=== PATIENT | male | born 1975 | race Caucasian/White ===

== ENCOUNTER 2018-10-23 16:57 | Emergency (ER) | payer MEDICARE, MEDICAID ==
[~2018-10-23] VITALS: Ht 190.5 cm; Wt 78.9 kg
[~2018-10-23 16:57] MED LIST: ALBU8HFA PO; PRED50TA PO
--- NOTE | 2018-10-23 17:50 | NUR ---
BACK FROM CT
[2018-10-23 18:37] VITALS: BP 137/98
[2018-10-23] MEDS ORDERED: LIDOcaine 1% w/epiNEPHrine 1:200,000 30ml vial IJ ONE (18:40)
[2018-10-23] MEDS ORDERED: LIDOcaine 1.5% w/epinephrine 1:200,000 5ml ampul IJ ONE (18:40)
== END 2018-10-23 20:18 | disposition home or self-care (01) ==
LOC: ER 16:58
DX: S01.01XA Laceration without foreign body of scalp, initial encounter (principal); J45.909 Unspecified asthma, uncomplicated; G89.29 Other chronic pain; Z88.6 Allergy status to analgesic agent; Z91.010 Allergy to peanuts; Z79.899 Other long term (current) drug therapy; W22.8XXA Striking against or struck by other objects, initial encounter; Y93.89 Activity, other specified; Y92.89 Other specified places as the place of occurrence of the external cause; Y99.8 Other external cause status
CPT/HCPCS: 12002; 70450; 99284; J3490

== ENCOUNTER 2020-08-11 11:56 | Emergency (ER) | payer MEDICARE, MEDICAID ==
[~2020-08-11] VITALS: Ht 190.5 cm; Wt 84.0 kg
[2020-08-11 12:40] LABS: BASOPHILS # (AUTO) 0.1 X10'3 (0-0.2); BASOPHILS % (AUTO) 1.1 % (0-1); EOSINOPHILS # (AUTO) 0.1 X10'3 (0-0.9); EOSINOPHILS % (AUTO) 1.3 % (0-6); HEMATOCRIT 47.1 % (42.0-52.0); HEMOGLOBIN 15.5 g/dl (14.0-17.9); LYMPHOCYTES # (AUTO) 1.7 X10'3 (1.1-4.8); LYMPHOCYTES % (AUTO) 26.5 % (21-51); MEAN CORPUSCULAR HEMOGLOBIN 28.9 PG (27.0-31.0); MEAN CORPUSCULAR VOLUME 87.5 FL (78-98); MEAN PLATELET VOLUME 7.8 FL (7.4-10.4); MONOCYTES # (AUTO) 0.6 X10'3 (0-0.9); MONOCYTES % (AUTO) 8.9 % (2-12); NEUTROPHILS # (AUTO) 4.1 X10'3 (1.8-7.7); NEUTROPHILS % (AUTO) 62.2 % (42-75); PLATELET COUNT 285 X10'3 (140-440); RED BLOOD COUNT 5.38 X10'6 (4.70-6.10); RED CELL DISTRIBUTION WIDTH 14.3 % (11.5-14.5); WHITE BLOOD COUNT 6.6 X10'3 (4.5-11.0)
[2020-08-11 12:53] LABS: ALANINE AMINOTRANSFERASE 29 U/L (12-78); ALBUMIN 4.1 G/DL (3.4-5.0); ALBUMIN/GLOBULIN RATIO 1.3 (1.1-1.5); ALKALINE PHOSPHATASE 51 IU/L (46-116); ANION GAP 9 (8-16); ASPARTATE AMINO TRANSFERASE 17 U/L (10-37); BILIRUBIN,TOTAL 0.8 MG/DL (0.1-1.0); BLOOD UREA NITROGEN 13 MG/DL (7-18); BUN/CREATININE RATIO 11.8 (5.4-32.0); CALCIUM 9.1 MG/DL (8.5-10.1); CHLORIDE 104 MMOL/L (99-107); GLUCOSE 104 MG/DL (70-104); POTASSIUM 4.4 MMOL/L (3.5-5.1); SODIUM 139 MMOL/L (135-145); TOTAL CARBON DIOXIDE 26.3 MMOL/L (24-32); TOTAL PROTEIN 7.2 G/DL (6.4-8.2); eGFR 73 ML/MIN
[2020-08-11] MEDS ORDERED: ACET-2119 PO (15:07)
[2020-08-11 15:27] VITALS: BP 120/81
== END 2020-08-11 15:29 | disposition home or self-care (01) ==
LOC: ER 11:56
DX: R07.89 Other chest pain (principal); J45.909 Unspecified asthma, uncomplicated; G89.29 Other chronic pain; Z72.89 Other problems related to lifestyle; Z88.6 Allergy status to analgesic agent; Z88.8 Allergy status to other drugs, medicaments and biological substances; Z79.899 Other long term (current) drug therapy
CPT/HCPCS: 36415; 71045; 80053; 83880; 84484; 85025; 93005; 99285

== ENCOUNTER 2023-08-12 22:00 | Emergency (ER) | payer MEDICARE, MEDICAID ==
[~2023-08-12] VITALS: Ht 188 cm; Wt 90.9 kg
[~2023-08-12 22:00] MED LIST changes: +ACET-2119 PO
[2023-08-12 22:06] VITALS: BP 101/62; PULSE 71; RESP 16; TEMP 97.7; O2SAT 98
--- NOTE | 2023-08-13 01:54 | NUR ---
PT STATES HE WAS LEAVING DUE TO EXCESSIVE WAIT TIMES
== END 2023-08-13 01:55 | disposition left against medical advice (07) ==
LOC: ER 22:01
DX: L02.419 Cutaneous abscess of limb, unspecified (principal); Z53.21 Procedure and treatment not carried out due to patient leaving prior to being seen by health care provider
CPT/HCPCS: 99281

== ENCOUNTER 2023-10-25 17:48 | Emergency (ER) | payer MEDICARE, MEDICAID ==
[~2023-10-25] VITALS: Ht 188 cm; Wt 87.7 kg
[2023-10-25 18:43] LABS: BASOPHILS # (AUTO) 0.1 X10'3 (0-0.2); BASOPHILS % (AUTO) 0.8 % (0-1); EOSINOPHILS % (AUTO) 0.2 % (0-6); HEMATOCRIT 43.4 % (42.0-52.0); HEMOGLOBIN 14.7 g/dl (14.0-17.9); LYMPHOCYTES # (AUTO) 1.8 X10'3 (1.1-4.8); MEAN CORPUSCULAR HEMOGLOBIN 29.2 PG (27.0-31.0); MEAN CORPUSCULAR HGB CONC 33.8 g/dL (33.0-36.5); MEAN CORPUSCULAR VOLUME 86.3 FL (78-98); MEAN PLATELET VOLUME 7.6 FL (7.4-10.4); MONOCYTES # (AUTO) 0.8 X10'3 (0-0.9); MONOCYTES % (AUTO) 12.3 % (2-12); NEUTROPHILS # (AUTO) 3.6 X10'3 (1.8-7.7); NEUTROPHILS % (AUTO) 57.7 % (42-75); PLATELET COUNT 308 X10'3 (140-440); RED BLOOD COUNT 5.03 X10'6 (4.70-6.10); RED CELL DISTRIBUTION WIDTH 13.6 % (11.5-14.5); WHITE BLOOD COUNT 6.3 X10'3 (4.5-11.0)
[2023-10-25 19:20] LABS: ALANINE AMINOTRANSFERASE 24 U/L (12-78); ALBUMIN 3.8 G/DL (3.4-5.0); ALBUMIN/GLOBULIN RATIO 1.2 (1.1-1.5); ALKALINE PHOSPHATASE 50 IU/L (46-116); ANION GAP 11 (8-16); ASPARTATE AMINO TRANSFERASE 15 U/L (10-37); BILIRUBIN,TOTAL 0.6 MG/DL (0.1-1.0); BLOOD UREA NITROGEN 11 MG/DL (7-18); BUN/CREATININE RATIO 9.3 (10.0-20.0); CALCIUM 8.9 MG/DL (8.5-10.1); CHLORIDE 106 MMOL/L (99-107); CREATININE 1.18 MG/DL (0.60-1.10); GLUCOSE 90 MG/DL (70-104); LIPASE 38 U/L (16-77); POTASSIUM 4.3 MMOL/L (3.5-5.1); SODIUM 142 MMOL/L (135-145); TOTAL CARBON DIOXIDE 25.2 MMOL/L (24-32); TOTAL PROTEIN 6.9 G/DL (6.4-8.2); eCRCL 91 ML/MIN; eGFR 66 ML/MIN
[2023-10-25 19:48] LABS: BILIRUBIN,URINE NEGATIVE (Neg); CLARITY,URINE CLEAR (Clear); COLOR,URINE YELLOW (Yellow); GLUCOSE, URINE NEGATIVE (Neg); KETONES,URINE NEGATIVE (Neg); LEUKOCYTE ESTERASE ,URINE NEGATIVE (Neg); NITRITES, URINE NEGATIVE (Neg); OCCULT BLOOD,URINE NEGATIVE (Neg); PROTEIN,URINE NEGATIVE (Neg); UROBILINOGEN,URINE >=8.0 E.U/dL (0.2-1.0)
[2023-10-25] MEDS ORDERED: iohexol 300mg/ml 100ml inj. ONE (19:54)
[2023-10-25] MEDS ORDERED: HYDROmorphone 1 mg/ml syringe IV ONE (19:55)
[2023-10-25] MEDS ORDERED: ondansetron/PF 4mg/2ml inj IV ONE (19:55)
[2023-10-25 20:01] LABS: UA COLLECTION TYPE CLN CATCH MIDSTREAM
[2023-10-25] MEDS ORDERED: CefTRIAXone 500MG IM Kit w/LIDOcaine IM STA (20:58)
[2023-10-25] MEDS ORDERED: DOXY-356 PO (21:02)
[2023-10-25] MEDS ORDERED: HYDR-3965 PO (21:02)
[2023-10-25 21:21] VITALS: BP 137/77; PULSE 67; RESP 12; TEMP 98; O2SAT 98
== END 2023-10-25 21:22 | disposition home or self-care (01) ==
LOC: ER 17:49
DX: N45.1 Epididymitis (principal); J45.909 Unspecified asthma, uncomplicated; G89.29 Other chronic pain; Z85.9 Personal history of malignant neoplasm, unspecified; Z72.89 Other problems related to lifestyle; Z88.8 Allergy status to other drugs, medicaments and biological substances; Z91.010 Allergy to peanuts; Z79.899 Other long term (current) drug therapy; Z79.2 Long term (current) use of antibiotics
CPT/HCPCS: 36415; 74178; 80053; 81003; 83690; 85025; 96372; 96374; 96375; 99285; J0696; J1170; J2405; J3490; Q9967

== ENCOUNTER 2024-05-26 19:05 | Emergency (ER) | payer MEDICARE, MEDICAID ==
[~2024-05-26] VITALS: Ht 190.5 cm; Wt 8.6 kg
[2024-05-26] MEDS ORDERED: SULF1TAB49 PO (19:35)
[2024-05-26] MEDS: CefTRIAXone 1000mg IM Kit (w/lidocaine diluent) IM ONE (20:23)
[2024-05-26 21:00] VITALS: BP 116/82; PULSE 62; RESP 14; TEMP 98.3; O2SAT 97
== END 2024-05-26 21:05 | disposition home or self-care (01) ==
LOC: ER 19:05
DX: L02.413 Cutaneous abscess of right upper limb (principal); J45.909 Unspecified asthma, uncomplicated; G89.29 Other chronic pain; M54.9 Dorsalgia, unspecified; Z85.89 Personal history of malignant neoplasm of other organs and systems; Z98.890 Other specified postprocedural states; Z72.89 Other problems related to lifestyle; Z88.8 Allergy status to other drugs, medicaments and biological substances; Z91.010 Allergy to peanuts; Z79.1 Long term (current) use of non-steroidal anti-inflammatories (NSAID); Z79.52 Long term (current) use of systemic steroids
CPT/HCPCS: 87070; 87077; 87186; 96372; 99283; J0696

== ENCOUNTER 2025-09-22 17:08 | Emergency (ER) | payer MEDICARE, MEDICAID ==
[~2025-09-22] VITALS: Ht 188 cm; Wt 99.3 kg
[~2025-09-22 17:08] MED LIST changes: -ACET-2119 PO; +ACET-3174 PO; +DOXY-243 PO; -PRED50TA PO
[2025-09-22 17:21] VITALS: TEMP 98.6
--- NOTE | 2025-09-22 17:34 | Physician Documentation ---
History of Present Illness ~ Chief Complaint: Cold, cough & congestion Stated Complaint: PNUEMONIA Time Seen by MD: 17:28 Primary Medical Doctor: [facility] Source: patient Mode of Arrival: POV Exam Limitations: no limitations HPI 50-year-old male concerned for pneumonia as he is having a productive cough shortness of breath and fever for proximally 2 weeks. Patient also has history of asthma denies COPD was a smoker but has not smoked for 13 years. No other significant medical history. Denies chest pain Medication Reconciliation Allergies: Coded Allergies: aspirin (Verified Allergy, Mild, NOT SUPPOSE TO TAKE IT DUE TO ONE KIDNEY, 09/22/25) peanut (Unverified Allergy, Unknown, 09/22/25) Uncoded Allergies: NUTS (Allergy, Unknown, 04/16/25) Scheduled Acetaminophen (Tylenol 8 Hour), 1 TAB PO Q8H Doxycycline Hyclate (Doxycycline Hyclate), 100 MG PO BID Scheduled PRN albuterol inhaler (Pro-Air Inhaler), 1-2 PUFFS PO Q4H PRN for SOB or wheezing, (Reported) Past Medical History Past Medical History: Asthma, Chronic Back Pain, *CANCER* Past Surgical History: other Other Past Surgical History: kidney removal Alcohol Use: Occasionally Drug Use: none Lives with: Family Lives In: Home Occupation: employed Review of Systems All Other Systems at this time: Reviewed and Negative Respiratory: Reports: see HPI Physical Exam Vital Signs: RN Vital Signs have been reviewed: Yes, Temperature: 98.6, Source: Temporal, Heart Rate: 82, Respiratory Rate: 16, BP: 120/82, Pulse Oximetry: 97, Weight: 99.300 Oxygen Flow Rate: 0 Physical Exam General: Alert, no apparent distress. HEENT: PERRL, EOMI, no injection, moist mucous membranes. Neck: Full range of motion. Respiratory: Posterior lower lobes coarse lung sounds diminished in the bases no respiratory distress. Speaking in full sentences Chest: No accessory muscle use. Cardiovascular: Regular rate and rhythm, no murmurs. Extremities: Normal range of motion, no deformity. Neurologic: Oriented x4. Psychiatric: Normal mood and affect. Skin: Normal color, warm and dry. No edema, no ecchymosis. Progress Results/Orders Results/Orders Orders - MARITZA SANDERS [employer] Chest,Two Views (09/22/25 17:35) Completed Orders - MARITZA SANDERS [employer] Chest,Two Views (09/22/25 17:35) Vital Signs 09/22/25 17:21 Temp 98.6 Pulse 82 Resp 16 B/P (MAP) 120/82 Pulse Ox 97 O2 Flow Rate 0 Laboratory Tests Test 09/22/25 17:34 White Blood Count 8.9 Red Blood Count 4.96 Hemoglobin 14.8 Hematocrit 43.4 Mean Corpuscular Volume 87.6 Mean Corpuscular Hemoglobin 29.8 Mean Corpuscular Hemoglobin Concent 34.0 Red Cell Distribution Width 14.2 Platelet Count 273 Mean Platelet Volume 8.2 Neutrophils (%) (Auto) 59.9 Lymphocytes (%) (Auto) 28.1 Monocytes (%) (Auto) 11.1 Eosinophils (%) (Auto) 0.5 Basophils (%) (Auto) 0.4 Neutrophils # (Auto) 5.3 Lymphocytes # (Auto) 2.5 Monocytes # (Auto) 1.0 H Eosinophils # (Auto) 0.0 Basophils # (Auto) 0.0 CBC Comment Chemistry Comments EKG/XRAY/CT/US/VASC/MRI Chest X-Ray : Additional Comments DI CHEST,TWO VIEWS CLINICAL HISTORY: Productive cough x2 weeks rule out pneumonia COMPARISON: None TECHNIQUE: Frontal and lateral view of the chest was obtained FINDINGS: Lines and Tubes: None Lungs: No focal consolidation. Pleura: No effusion. No pneumothorax. Cardiomediastinal contours: Unremarkable Bones: No acute osseous abnormality. IMPRESSION: No acute cardiopulmonary disease. Medical Decision Making Additional information obtaine: old records Findings Patient history of asthma history of smoking over 13 years ago productive cough and fevers chest x-ray and labs ordered to evaluate for any infective process including pneumonia. X-ray was unremarkable for any infiltrates or suggestions of pneumonia. Differential Dx:Considerations: Include: Influenza, Pneumonia, Pnuemonitis, Sinusitis, URI Departure Time of Disposition: 18:03 Disposition: 01 HOME / SELF CARE / HOMELESS Impression: Primary Impression: Acute respiratory infection Condition: Stable Discharge Instructions: Upper Respiratory Infection, Adult Additional Instructions: Take prednisone and antibiotics as prescribed follow up with primary care in 2-3 days monitor for any new or worsening symptoms and feel free to return if continued symptoms Referrals: NO PRIMARY CARE PROVIDER (PCP) Prescriptions Azithromycin (Zithromax) 250 Mg Tablet 1 TAB PO UD for 5 Days, #6 TAB 2 the first day followed by 1 for days 2-5 Prov: MARITZA SANDERS NP 09/22/25 Prednisone (Prednisone) 10 Mg Tablet 1 TAB PO DAILY for 5 Days, #21 TAB Prov: MARITZA SANDERS NP 09/22/25 Education Educated: Patient Educated regarding: diagnosis, treatment, need for follow up Signature Scribe Signature: No scribe Attestation: The note accurately reflects work and decisions made by me.Maritza SAENZ 09/22/25 17:34 MARITZA SANDERS NP Sep 22, 2025 17:34
--- NOTE | 2025-09-22 17:51 | RADIOLOGY REPORT ---
DI CHEST,TWO VIEWS CLINICAL HISTORY: Productive cough x2 weeks rule out pneumonia COMPARISON: None TECHNIQUE: Frontal and lateral view of the chest was obtained FINDINGS: Lines and Tubes: None Lungs: No focal consolidation. Pleura: No effusion. No pneumothorax. Cardiomediastinal contours: Unremarkable Bones: No acute osseous abnormality. IMPRESSION: No acute cardiopulmonary disease.
[2025-09-22 17:59] LABS: MEAN PLATELET VOLUME 8.2 FL (7.4-10.4); RED CELL DISTRIBUTION WIDTH 14.2 % (11.5-14.5)
[2025-09-22 18:03] LABS: CREATININE 1.30 MG/DL (0.60-1.10); TOTAL CARBON DIOXIDE 26.4 MMOL/L (24-32); eCRCL 81 ML/MIN; eGFR 59 ML/MIN
[2025-09-22] MEDS ORDERED: AZIT250T2 PO (18:04)
[2025-09-22] MEDS ORDERED: PRED10TA23 PO (18:04)
[2025-09-22 18:20] VITALS: BP 126/78; PULSE 85; RESP 16; O2SAT 95
== END 2025-09-22 18:20 | disposition home or self-care (01) ==
LOC: ER 17:08
DX: J22 Unspecified acute lower respiratory infection (principal); J45.909 Unspecified asthma, uncomplicated; Z87.891 Personal history of nicotine dependence; Z88.6 Allergy status to analgesic agent; Z91.010 Allergy to peanuts
CPT/HCPCS: 36415; 71046; 80048; 85025; 99284